=== PATIENT | female | born 1945 | race Caucasian/White ===

== ENCOUNTER 2018-02-18 14:31 | Observation (INO) ==
--- NOTE | 2018-02-18 15:33 | XR ---
EXAM DATE: 02/18/2018 3:28 PM EDT AGE/SEX: 72 years / Female INDICATIONS: . Chest pain today. CLINICAL DATA: This is the patient's initial encounter. Patient reports that signs and symptoms have been present for 1 day and indicates a pain score of 10/10. MEDICAL/SURGICAL HISTORY: None. None. COMPARISON: No prior exams available for comparison. FINDINGS: PA and lateral views of the chest demonstrate the lungs to be hyperaerated without evidence of mass, infiltrate or effusion. The cardiomediastinal contours are unremarkable. Osseous structures are intac t. CONCLUSION: Hyperinflation without infiltrate. Electronically signed by: Chris Vickers MD 02/18/2018 3:31 PM EDT
[2018-02-18 15:34] LABS: Eos # (Auto) 0.1 th/mm3 (0.0-0.4); Hemoglobin 10.2 gm/dL (11.6-15.3); Lymph # (Auto) 0.8 th/mm3 (1.0-4.8); Mean Corpuscular HGB Conc 32.8 % (32.0-36.0); Mean Corpuscular Hemoglobin 22.8 pg (27.0-34.0); Mean Corpuscular Volume 69.6 fL (80.0-100.0); Mean Platelet Volume 9.3 fL (7.0-11.0); Mono # (Auto) 0.4 th/mm3 (0.0-0.9); Mono % (Auto) 8.2 % (0.0-8.0); Neut # (Auto) 3.5 th/mm3 (1.8-7.7); Neut % (Auto) 71.8 % (16.0-70.0); Platelet Count 216 th/mm3 (150-450); Red Blood Count 4.45 mil/mm3 (4.00-5.30); Red Cell Distribution Width 16.4 % (11.6-17.2); White Blood Count 4.8 th/mm3 (4.0-11.0)
[2018-02-18 15:50] LABS: Anion Gap 5 meq/L (5-15); Blood Urea Nitrogen 13 mg/dL (7-18); Calcium 8.5 mg/dL (8.5-10.1); Carbon Dioxide 29.9 meq/L (21.0-32.0); Chloride 106 meq/L (98-107); Glomerular Filtration Rate 80 mL/min (>89); Glucose,Random 86 mg/dL (74-106); Potassium 3.8 meq/L (3.5-5.1); Sodium 141 meq/L (136-145)
[2018-02-18 16:07] LABS: Creatine Kinase 45 U/L (26-192)
--- NOTE | 2018-02-18 16:10 | ED ---
HPI General Chief Complaint: Chest Pain Stated Complaint: Chest pain Time Seen by Provider: 02/18/18 16:02 Source: patient Mode of arrival: ambulatory Limitations: no limitations History of Present Illness HPI narrative: 72-year-old female with a history of COPD presents emergency department at the request of her 's instrument and electrical technician evaluation of 2 episodes of chest pain this week. Patient states that she began having labs guided midsternal chest pain described as stabbing associated with shortness of breath. Patient states the pain was moderate in severity and nonradiating. She says she took 2 of her nitroglycerin which provided relief. To the chest pain lasted approximately 20 minutes though Thursday and Thursday. She says he had a similar episode last year and was admitted to a hospital in [place]. She says she also had a stress test but does not know the results of this. Says she has been taking baby aspirin daily this week. Currently she denies shortness of breath, chest pain, abdominal pain, leg pain. She denies history of OR, HLD, HTN, DM. Patient states she smokes 2 cigarettes per day but has an extensive tobacco use history. Patient has not followed up with a instrument and electrical technician. Patient is due to see another primary care physician and does not currently have a primary care physician. MD complaint: chest pain Complete Quality Measures for STEMI Alert Patients STEMI Alert: No Related Data Allergies Allergy/AdvReac Type Severity Reaction Status Date / Time Penicillins Allergy Hives Verified 02/18/18 14:58 Review of Systems ROS: all other systems reviewed are negative [facility] Medical History Medical History COPD (chronic obstructive pulmonary disease) (Acute) Emphysema/COPD (Acute) Social History Social History Substance History: No History of Abuse Second Hand Smoke Exposure: No Smoking Status: Current every day smoker Tobacco Type: Cigarettes How Often Do You Have a Drink Containing Alcohol: 4 or more times a week Recent Travel in [facility] within the Last 8 Weeks: No Recent Out of Country Travel within the Last 8 Weeks: No Immunization History Tetanus Immunization: Unsure Hx Influenza Vaccine This Season: No Exam Narrative Exam Narrative: GENERAL: Well-developed, well-nourished no apparent distress SKIN: Focused skin assessment warm/dry. HEAD: Atraumatic. Normocephalic. EYES: Pupils equal and round. No scleral icterus. No injection or drainage. PERRLA ENT: No nasal bleeding or discharge. Mucous membranes pink and moist. NECK: Trachea midline. No JVD. No lymphadenopathy CARDIOVASCULAR: Regular rate and rhythm. No murmur appreciated. RESPIRATORY: No accessory muscle use. Clear to auscultation. Breath sounds equal bilaterally. GASTROINTESTINAL: Abdomen soft, non-tender, nondistended. Hepatic and splenic margins not palpable. No CVA tenderness MUSCULOSKELETAL: No obvious deformities. No clubbing. No cyanosis. No edema. NEUROLOGICAL: Awake and alert. No obvious cranial nerve deficits. Motor grossly within normal limits. Normal speech. PSYCHIATRIC: Appropriate mood and affect; insight and judgment normal. Course Initial Documented Vital Signs Temperature 97.4 F L 02/18/18 14:54 Pulse Rate 79 02/18/18 14:54 Respiratory Rate 16 02/18/18 14:54 Blood Pressure 138/65 02/18/18 14:54 Pulse Oximetry 96 02/18/18 14:54 Last Documented Vital Signs Temperature 97.2 F L 02/18/18 20:00 Pulse Rate 86 02/18/18 20:00 Respiratory Rate 18 02/18/18 20:00 Blood Pressure 152/67 H 02/18/18 20:00 Pulse Oximetry 95 02/18/18 20:00 Clinical Decision Support HEART Score Questions History: Moderately suspicious EKG: Significant ST depression Age: 65 years+ Risk Factors: 1-2 Risk Factors Initial Troponin: Normal Limit Heart Score HEART Score: 6 Medical Decision Making [facility] Narrative Medical decision making narrative: 72-year-old female with a history of COPD presents emergency department for evaluation of 2 episodes of chest pain that occurred Thursday and Thursday while at rest. She says these episodes lasts approximately 20 minutes before resolving with 2 doses of NTG. She says she has associated SOB. Her 's instrument and electrical technician recommended she come in to the ED for evaluation while she was there picking up her 's prescription. Vital signs stable. I recommend patient be admitted to the [facility]. It required an extensive conversation as patient was concerned about her . She states he does not drive and she has dogs to take care of. @1706 Agrees to the admission to [facility]. Pt has friends and family in the area to care for her and dogs at home. Differential Diagnosis Differential Diagnosis: Angina, unstable angina, ACS Medical Records Medical records reviewed: Yes I reviewed the patient's medical records. None available at [place]. Lab Data Lab results reviewed: Yes I reviewed the patient's lab results. Lab results narrative: Cardiac enzymes negative. Result diagrams: 02/18/18 15:10 02/18/18 15:10 Lab Results 02/18/18 02/18/18 02/18/18 Range/Units 15:10 15:10 18:10 WBC 4.8 (4.0-11.0) th/mm3 RBC 4.45 (4.00-5.30) mil/mm3 Hgb 10.2 L (11.6-15.3) gm/dL Hct 31.0 L (35.0-46.0) % MCV 69.6 L (80.0-100.0) fL MCH 22.8 L (27.0-34.0) pg MCHC 32.8 (32.0-36.0) % RDW 16.4 (11.6-17.2) % Plt Count 216 (150-450) th/mm3 MPV 9.3 (7.0-11.0) fL Neut % (Auto) 71.8 H (16.0-70.0) % Lymph % (Auto) 16.0 (9.0-44.0) % [place] % (Auto) 8.2 H (0.0-8.0) % Eos % (Auto) 3.0 (0.0-4.0) % Baso % (Auto) 1.0 (0.0-2.0) % Neut # (Auto) 3.5 (1.8-7.7) th/mm3 Lymph # (Auto) 0.8 L (1.0-4.8) th/mm3 [place] # (Auto) 0.4 (0.0-0.9) th/mm3 Eos # (Auto) 0.1 (0.0-0.4) th/mm3 Baso # (Auto) 0.0 (0.0-0.2) th/mm3 WBC Differential . Differential Comment Auto diff final Sodium 141 (136-145) meq/L Potassium 3.8 (3.5-5.1) meq/L Chloride 106 (98-107) meq/L Carbon Dioxide 29.9 (21.0-32.0) meq/L Anion Gap 5 (5-15) meq/L BUN 13 (7-18) mg/dL Creatinine 0.72 (0.50-1.00) mg/dL Estimated GFR 80 L (>89) mL/min Random Glucose 86 (74-106) mg/dL Calcium 8.5 (8.5-10.1) mg/dL Total Creatine Kinase 45 45 (26-192) U/L Troponin I Less than 0.02 L Less than 0.02 L (0.02-0.05) ng/mL Imaging Data Radiologist's impression: Chest X-Ray 02/18/18 14:59 CONCLUSION: Hyperinflation without infiltrate. ECG Data EKG Prior to Arrival: No Attestation: I personally reviewed and interpreted this ECG as follows: Prior ECG tracings: not available for review Interpretation: Sinus rhythm rate 90, ST depression in V3-V5, no EKG s for comparison. Discharge Plan Discharge Disposition Patient Disposition: 30 Still Patient Discharge Condition Condition: Stable Discharge Details Diagnosis: Angina at rest Physicians Team ED Provider: Patrick Cabello ED Midlevel Provider: Katheryn Luna Primary Care Provider: Primary Care Anne Marie Kennedy Attending Provider: Kimo Eng Status ED Status: Admitted Observation Patient Discharge Information Discharge Date/Time: 02/18/18 17:45
[2018-02-18] MEDS ORDERED: Acetaminophen 500 MG Tablet PO PRN (17:03)
[2018-02-18 19:14] LABS: Creatine Kinase 45 U/L (26-192)
--- NOTE | 2018-02-19 09:53 | P.HPCA ---
History of Present Illness Primary Care Physician: No Primary Care Physician Chief Complaint: Chest pain History of Present Illness: This is a 72-year-old female state history of COPD that presents to ED to be evaluated for chest discomfort. She had 2 separate episodes. First episode was on Thursday. Describes it as a grabbing pain that lasted about 20 minutes. She had another episode a few days ago that is very similar but not as intense. She happened to be at her 's pharmacology professor office today and was mentioning this and was advised to be evaluated in the ED. She presented yesterday for evaluation. States she has had a cardiac workup in the past she has had similar discomfort. States she had a heart catheterization about 5 years ago that was okay. He states her last nuclear stress test was about a year ago and that was okay. Has recent illness. Denies fevers or chills. There is family history of CAD. Patient was smoking about half pack a series daily for 50 years but quit 6 months ago for the most part. Since then she has had an occasional cigarette. She lives with her who suffers from dementia. - Diagnosis (1) Chest pain Review of Systems General: Patient denies fevers, chills, and recent travel. HEENT: Patient denies headache, sore throat, difficulty swallowing. Cardiovascular: Has the chest discomfort as mentioned above. Denies sensation of heart beating rapidly or irregularly. No syncope. Denies diaphoresis. Respiratory: Denies shortness of breath or inspirational chest discomfort. Denies coughing wheezing or hemoptysis. GI: Patient denies nausea, vomiting, diarrhea, abdominal pain, bloody stools. Musculoskeletal: Patient denies joint pain or edema. Denies calf pain or edema. Neurovascular: Patient denies numbness, tingling, weakness in extremities. Denies headache. Endocrine: Denies polyuria and polydipsia. Hematologic: Denies easy bruising. Skin: Denies rash or itching. PMFSH - History History Provided By: Patient - Medical History Medical History: Medical History (Last Updated 02/18/18 @ 15:56 by Thais Devries) COPD (chronic obstructive pulmonary disease) Emphysema/COPD - Tobacco History Second Hand Smoke Exposure: Yes Tobacco Use In Past 30 Days: Yes Smoking Status: Current some day smoker Tobacco Type: Cigarettes - Alcohol History How Often Do You Have a Drink Containing Alcohol: 4 or more times a week - Substance Use History Substance History: No History of Abuse - Travel History Recent Travel in the [place] Within the Last 8 Weeks: No Recent Travel Out of the Country Within the Last 8 Weeks: No - Immunization History Tetanus Immunization: Unsure Hx Influenza Vaccine This Season: No Medications and Allergies Active Medications: Active Medications Acetaminophen (Tylenol) 500 mg PO Q4H PRN PRN Reason: HEADACHE Nitroglycerin (Nitrostat Sl) 0.4 mg SL Q5M PRN PRN Reason: CHEST PAIN Sodium Chloride (Ns Flush) 2 ml IV.FLUSH BID EKTA Last Admin: 02/18/18 20:14 Dose: 2 ml Sodium Chloride (Ns Flush) 2 ml IV.FLUSH PRN PRN PRN Reason: FLUSH AFTER USING IV ACCESS Allergies Allergy/AdvReac Type Severity Reaction Status Date / Time Penicillins Allergy Hives Verified 02/18/18 14:58 Exam Vital signs: Vital Signs 02/18/18 14:54 02/18/18 15:58 02/18/18 17:00 Temperature 97.4 F L Pulse Rate 79 78 72 Respiratory Rate 16 22 17 Blood Pressure 138/65 144/66 H 160/65 H Pulse Oximetry 96 97 95 02/18/18 20:00 02/18/18 23:34 02/19/18 02:08 Temperature 97.2 F L 98.1 F Pulse Rate 86 70 75 Respiratory Rate 18 16 Blood Pressure 152/67 H 112/52 L Pulse Oximetry 95 95 02/19/18 04:00 02/19/18 08:00 02/19/18 08:29 Temperature 97.6 F 98.1 F Pulse Rate 74 75 71 Respiratory Rate 16 18 Blood Pressure 114/56 L 138/61 Pulse Oximetry 93 L 92 L Intake & Output 02/18/18 02/19/18 02/19/18 18:59 06:59 18:59 Weight 61.235 kg Other: # Voids 3 Narrative: GENERAL: This is a well-nourished, well-developed patient, in no apparent distress. Patient speaks in clear complete sentences. Patient is pleasant. HEENT: Head is atraumatic and normocephalic. Neck is supple without lymphadenopathy and trachea is midline. No JVD or carotid bruits. CARDIOVASCULAR: Regular rate and rhythm without murmurs, gallops, or rubs. RESPIRATORY: Clear to auscultation. Breath sounds equal bilaterally. No wheezes , rales, or rhonchi. Chest wall is nontender. No use of accessory muscles. GASTROINTESTINAL: Abdomen is nontender, nondistended. Abdomen soft. No obvious pulsatile mass or bruit. No CVA tenderness. Strong femoral pulses bilaterally. Normal bowel sounds in all quadrants. MUSCULOSKELETAL: Patient is moving upper and lower extremities freely. No calf tenderness or edema, no Homans sign. Strong pulses in upper and lower extremities. NEUROLOGICAL: Patient is alert and oriented. Cranial nerves 2-12 are grossly intact. No focal deficits and speech is clear. SKIN: No rash and turgor is normal. Results 02/18/18 15:10 02/18/18 15:10 Cardiac Enzymes 02/18/18 02/18/18 02/18/18 Range/Units 15:10 18:10 21:50 Troponin I Less than 0.02 L Less than 0.02 L Less than 0.02 L (0.02-0.05) ng/mL CBC 02/18/18 Range/Units 15:10 WBC 4.8 (4.0-11.0) th/mm3 RBC 4.45 (4.00-5.30) mil/mm3 Hgb 10.2 L (11.6-15.3) gm/dL Hct 31.0 L (35.0-46.0) % Plt Count 216 (150-450) th/mm3 Neut # (Auto) 3.5 (1.8-7.7) th/mm3 Lymph # (Auto) 0.8 L (1.0-4.8) th/mm3 [place] # (Auto) 0.4 (0.0-0.9) th/mm3 Eos # (Auto) 0.1 (0.0-0.4) th/mm3 Baso # (Auto) 0.0 (0.0-0.2) th/mm3 Comprehensive Metabolic Panel 02/18/18 Range/Units 15:10 Sodium 141 (136-145) meq/L Potassium 3.8 (3.5-5.1) meq/L Chloride 106 (98-107) meq/L Carbon Dioxide 29.9 (21.0-32.0) meq/L BUN 13 (7-18) mg/dL Creatinine 0.72 (0.50-1.00) mg/dL Calcium 8.5 (8.5-10.1) mg/dL Intake and Output 02/18/18 02/19/18 02/19/18 22:59 06:59 14:59 Other: # Voids 3 EKG interpretations - EKG EKG shows: sinus rhythm (EKGs are sinus rhythm with nonspecific T-wave changes.) Caprini VTE Risk Assessment Caprini VTE Risk Assessment: Moderate/High Risk (score >= 2) Caprini Risk Assessment Model: Point Value = 1 Point Value = 2 Point Value = 3 Point Value = 5 Age 41-60 Minor surgery BMI > 25 kg/m2 Swollen legs Varicose veins or History of unexplained or recurrent spontaneous Oral contraceptives or hormone replacement Sepsis (< 1 month) Serious lung disease, including pneumonia (< 1 month) Abnormal pulmonary function Acute myocardial infarction Congestive heart failure (< 1 month) History of inflammatory bowel disease Medical patient at bed rest Age 61-74 Arthroscopic surgery Major open surgery (> 45 min) Laparoscopic surgery (> 45 min) Malignancy Confined to bed (> 72 hours) Immobilizing plaster cast Central venous access Age >= 75 History of VTE Family history of VTE Factor V Leiden Prothrombin [id number] Lupus anticoagulant Anticardiolipin antibodies Elevated serum homocysteine Heparin-induced thrombocytopenia Other congenital or acquired thrombophilia Stroke (< 1 month) Elective arthroplasty Hip, pelvis, or leg fracture Acute spinal cord injury (< 1 month) Prophylaxis Regimen: Total Risk Factor Score Risk Level Prophylaxis Regimen 0-1 Low Early ambulation 2 Moderate Order ONE of the following: *Sequential Compression Device (SCD) *Heparin 5000 units SQ BID 3-4 Higher Order ONE of the following medications: *Heparin 5000 units SQ TID *Enoxaparin/Lovenox 40 mg SQ daily (WT < 150 kg, CrCl > 30 mL/min) *Enoxaparin/Lovenox 30 mg SQ daily (WT < 150 kg, CrCl > 10-29 mL/min) *Enoxaparin/Lovenox 30 mg SQ BID (WT < 150 kg, CrCl > 30 mL/min) AND/OR *Sequential Compression Device (SCD) 5 or more Highest Order ONE of the following medications: *Heparin 5000 units SQ TID (Preferred with Epidurals) *Enoxaparin/Lovenox 40 mg SQ daily (WT < 150 kg, CrCl > 30 mL/min) *Enoxaparin/Lovenox 30 mg SQ daily (WT < 150 kg, CrCl > 10-29 mL/min) *Enoxaparin/Lovenox 30 mg SQ BID (WT < 150 kg, CrCl > 30 mL/min) AND *Sequential Compression Device (SCD) Assessment and Plan - Assessment (1) Chest pain Code(s): R07.9 - Chest pain, unspecified Status: Acute - Plan * Chest pain: Patient had serial cardiac enzymes and EKGs for ruling out purposes. She was seen by Dr. Kimo Eng of cardiology in the chest pain center and will undergo a Lexiscan. Patient will be discharged home if her stress test is nonischemic with instructions to follow-up with PCP. Return to ED for interval issues. * COPD: Patient states she has history of COPD. By DuoNeb's as needed. Patient reminded of the importance of continuing smoking cessation. Patient is stable at this time. She is agreeable to this plan. H&P: Quality - VTE Deep Vein Thrombosis/Pulmonary Embolism Present on Admission: No
[2018-02-19] MEDS ORDERED: Regadenoson Inj 0.4 MG/5 ML Syringe IV.PUSH ONE (14:00)
--- NOTE | 2018-02-19 14:24 | TR ---
Date Performed: 02/19/2018 Time Performed: 13:48:25 DOCTOR: Kimo Eng DRUG LIST: CLINICAL HISTORY: REASON FOR TEST: REASON FOR ENDING: OBSERVATION: CONCLUSION: COMMENTS: Patient exercised using the Fito protocol. No electrocardiographic changes were seen to suggest ischemia. Hemodynamic response to exercise was normal. No significant arrhythmia was prese nt.
--- NOTE | 2018-02-19 14:40 | ECG ---
Date Performed: 02/18/2018 Time Performed: 15:02:12 PTAGE: 72 years EKG: Sinus rhythm MODERATE ST DEPRESSION ABNORMAL ECG NO PREVIOUS TRACING DOCTOR: Elbert Dias Interpretating Date/Time 02/19/2018 14:36:10
--- NOTE | 2018-02-19 14:59 | NM ---
EXAM DATE: 02/19/2018 2:52 PM EDT AGE/SEX: 72 years / Female INDICATIONS:Angina. . Midsternal chest pain for two weeks with dyspnea. CLINICAL DATA: This is the patient's initial encounter. Patient reports that signs and symptoms have been present for 1 day and indicates a pain score of 5/10. MEDICAL/SURGICAL HISTORY: Chronic obstructive pulmonary disease. None. COMPARISON: No prior exams available for comparison. DOSE: 8.5 mCi Tc 99m Myoview at rest 27.6 mCi [id number] at stress 0.4 mg Lexiscan STRESS SYMPTOMS: Shortness of breath, headache. EJECTION FRACTION: 56 % TECHNIQUE: The patient underwent pharmacologic stress with infusion of prescribed dose. Continuous ECG tracing was monitored during stress. Gated SPECT imaging was performed after stress and conventi onal SPECT imaging was performed at rest. The examination was performed on a SPECT/CT scanner, both attenuation and non-corrected datasets were reviewed. FINDINGS: Distribution: The maximum perfused segment at stress is in the lateral wall. Perfusion Study: Mild reversible stress-induced hypoperfusion is identified in the anterior wall. N o fixed perfusion abnormalities. Gated Study: There are intact wall motion and wall thickening without hypokinetic or dyskinetic segm ents. The ejection fraction is calculated at 56%. RISK CATEGORY: Intermediate (1-3 % Annual Mortality Rate) CONCLUSION: 1. Mild reversible stress-induced hypoperfusion in the anterior wall which normalizes at rest. 2. Normal wall motion and ejection fraction. Electronically signed by: James Cano MD 02/19/2018 2:58 PM EDT
[2018-02-19] MEDS: Aspirin 325 MG Tablet PO SCH (16:58)
[2018-02-19 20:33] VITALS: RESP 16
[2018-02-19] MEDS: Metoprolol Tartrate 25 MG Tablet PO SCH (22:02)
[2018-02-20 07:56] VITALS: BP 116/58; TEMP 97.3; O2SAT 92
[2018-02-20 08:04] LABS: Chol/HDL Ratio 2.12 Ratio; HDL Cholesterol 69.1 mg/dL (40.0-60.0)
[2018-02-20] MEDS: Aspirin 325 MG Tablet PO SCH (08:35)
[2018-02-20] MEDS: Metoprolol Tartrate 25 MG Tablet PO SCH (08:36)
--- NOTE | 2018-02-20 09:17 | P.PN ---
Subjective Interval history: Follow-up for chest pain with abnormal nuclear stress test. The patient reports no further chest pains overnight. States she has some mild shortness of breath which is at baseline with her emphysema. Denies any cough, fevers, or chills. Denies any lower extremity edema. She had a discussion with cardiology Dr. Louis, plans to go home today and follow-up with Dr. Hackett in the office. Physical Exam Vital signs: Vital Signs 02/19/18 16:00 02/19/18 20:09 02/19/18 20:33 Temperature 98.8 F 97.4 F L Pulse Rate 63 78 81 Respiratory Rate 18 18 16 Blood Pressure 115/55 L 103/58 L Pulse Oximetry 96 94 L 02/19/18 23:52 02/20/18 03:19 02/20/18 05:01 Temperature 97.9 F 98.3 F Pulse Rate 81 72 75 Respiratory Rate 16 16 Blood Pressure 105/55 L 106/62 Pulse Oximetry 95 94 L 02/20/18 07:54 Temperature 97.3 F L Pulse Rate 73 Respiratory Rate 16 Blood Pressure 116/58 L Pulse Oximetry 92 L Intake & Output 02/19/18 02/20/18 02/20/18 18:59 06:59 18:59 Other: # Voids 2 2 Narrative: GENERAL: Well-nourished, well-developed pleasant elderly female patient in [facility]. SKIN: Warm and dry. No rash. HEENT: Normocephalic. Atraumatic. Pupils equal and round. Mucous membranes pink and moist. CARDIOVASCULAR: Regular rate and rhythm. No murmur appreciated. RESPIRATORY: No accessory muscle use. Clear to auscultation. Breath sounds equal bilaterally. GASTROINTESTINAL: Abdomen soft, non-tender, nondistended. Normoactive bowel sounds x4. MUSCULOSKELETAL: No obvious deformities. Extremities without clubbing, cyanosis , or edema. NEUROLOGICAL: Awake and alert. No obvious cranial nerve deficits. Motor grossly within normal limits. Moving all extremities spontaneously. Normal speech. PSYCHIATRIC: Appropriate mood and affect; insight and judgment normal. Results - Labs CBC & Chem 7: 02/18/18 15:10 02/18/18 15:10 Laboratory Results - last 24 hr 02/20/18 06:59 Triglycerides 80 Cholesterol 147 LDL Cholesterol, Calc 62 HDL Cholesterol 69.1 H Cholesterol/HDL Ratio 2.12 - Imaging Impressions Myocardial Perfusion Scan Nuc Med 02/19/18 08:19 CONCLUSION: 1. Mild reversible stress-induced hypoperfusion in the anterior wall which normalizes at rest. 2. Normal wall motion and ejection fraction. Assessment and Plan - Plan 72-year-old female with history of COPD/emphysema presents with 2 episodes of chest pain. Chest pain: Patient was initially admitted to the chest pain center, ACS ruled out with negative serial cardiac enzymes x3 and EKG without acute ischemic changes, however nuclear stress test showed mild reversible stress-induced hypoperfusion at the anterior wall that resolves with rest. Admitted to hospitalists with cardiology consult. -Monitor on telemetry -Given BB, aspirin, nitroglycerin as needed, O2 as needed -Chest pain currently resolved -Cardiology consulted, discussed with Dr. Louis, cleared for discharge with plan to follow-up as outpatient with Dr. Hackett COPD/emphysema: Chronic, at baseline -Continue duonebs as needed DVT Prophylaxis: SCDs; patient is ambulatory Discharge Planning: Discharge patient to home Condition on discharge: Stable Heart Healthy Diet as tolerated Ad [place] activity Rx written: Aspirin 81 mg daily, nitroglycerin prn Follow-up with primary care physician and cardiology Dr. Hackett
[2018-02-20 09:33] VITALS: PULSE 75
--- NOTE | 2018-02-20 10:13 | MB ---
cc: Juaquin Louis MD DATE: 02/20/2018 REASON FOR CONSULTATION: Chest pain with mild abnormal stress test. HISTORY OF PRESENT ILLNESS: The patient is a very pleasant 72-year-old woman who has an appointment to see my partner Dr. Hackett next week but apparently had been having chest pain, so presented to the [facility] where she was ruled out for SC and placed for observation in the chest pain center. She has since had a nuclear stress test showing a mild reversible defect in the anterior wall, and thus I was consulted. The patient is completely asymptomatic, denying any residual chest discomfort. She described the initial chest discomfort as a pressure that was in 2 separate episodes, 1 more severe than the other, both occurring at rest. Again, currently she is asymptomatic, asking to be discharged home. PAST MEDICAL HISTORY: COPD. CURRENT MEDICATIONS: Albuterol, aspirin, Lopressor 25 mg b.i.d., sublingual nitroglycerin p.r.n. ALLERGIES: PENICILLIN. PHYSICAL EXAMINATION: VITAL SIGNS: Afebrile, pulse 73, respiratory rate 16, BP 115/58, saturating 92% on room air. GENERAL: Pleasant, thin woman in no distress. NECK: No JVD. LUNGS: Clear to auscultation bilaterally. CARDIOVASCULAR: Regular rate and rhythm. No murmurs appreciated. ABDOMEN: Benign. EXTREMITIES: No edema. LABORATORY DATA: White count 4.8, hematocrit 31, platelets 216. Sodium 141, potassium 3.8, chloride 106, bicarbonate 29.9, BUN 13, creatinine 0.72, glucose 86. Cardiac enzymes are negative x3. EKG showed sinus rhythm with minor nonspecific ST changes. Nuclear stress test showed mild anterior reversibility, possibly consistent with mild ischemia. ASSESSMENT AND PLAN: 1. Chest pain with mildly abnormal stress test. The patient's chest pain was reasonably typical sounding, however, did happen at rest with no exertional symptoms. Her stress test was mildly abnormal. I did offer a cardiac catheterization to be done as an inpatient, but the patient declined this and asked to be discharged home, and she would like medical therapy, and she will consider whether she wants a cardiac catheterization as an outpatient. She does understand there are some risks involved with this choice, particularly if her stress test is representing any degree of ischemia. Nonetheless, she does not want any procedures done at this point, wants to be continued on medical therapy, and she will followup with Dr. Hackett as scheduled. Thank you, again, for the opportunity to participate in this patient's care. MD RICHIE Devine/grace , 08:58 AM , 09:05 AM
--- NOTE | 2018-02-21 08:48 | ECG ---
Date Performed: 02/18/2018 Time Performed: 21:44:34 PTAGE: 72 years EKG: Sinus rhythm WITH SINUS ARRHYTHMIA SEPTAL MYOCARDIAL INFARCTION ABNORMAL ECG PREVIOUS TRACING : 02/18/2018 15.02 DOCTOR: Manuel Carrera Interpretating Date/Time 02/21/2018 08:39:48
== END 2018-02-20 11:28 | disposition home or self-care (01) ==
LOC: NEPC 14:31 → NEDA 14:31 → NEPGCP 14:31 → NEDA 17:45 → NEPGCP 19:57
PROVIDERS: ADMIT Hospitalist; ATTEND Hospitalist
DX: Z88.0 Allergy status to penicillin; F17.210 Nicotine dependence, cigarettes, uncomplicated; R07.89 Other chest pain; Z82.49 Family history of ischemic heart disease and other diseases of the circulatory system; J44.9 Chronic obstructive pulmonary disease, unspecified; Z79.82 Long term (current) use of aspirin